=== PATIENT | male | born 1960 | race African-American/Black ===

== ENCOUNTER 2021-06-09 11:42 | Emergency (ER) | payer MEDICARE, OTHER ==
[2021-06-09] MEDS ORDERED: Acetaminophen 500 MG TAB ONE (12:25)
[2021-06-09] MEDS ORDERED: Ketorolac Tromethamine 30 MG/ML VIAL ONE (12:25)
== END 2021-06-09 13:05 | disposition home or self-care (01) ==
LOC: ERS 11:42
DX: M25.562 Pain in left knee (principal); I10 Essential (primary) hypertension
CPT/HCPCS: 96372; J1885

== ENCOUNTER 2021-08-10 10:37 | Outpatient (CLI) | payer OTHER | END 2021-08-10 10:38 | disposition home or self-care (01) | LOC: BICMRI 10:37 | PROVIDERS: ATTEND Family Medicine | DX: M51.16 Intervertebral disc disorders with radiculopathy, lumbar region (principal); M48.07 Spinal stenosis, lumbosacral region; M47.26 Other spondylosis with radiculopathy, lumbar region; M47.817 Spondylosis without myelopathy or radiculopathy, lumbosacral region | CPT/HCPCS: 72148 ==

== ENCOUNTER 2022-01-14 14:06 | Outpatient (CLI) | payer OTHER | END 2022-01-14 14:07 | disposition home or self-care (01) | LOC: RAD-FRANK 14:06 | PROVIDERS: ATTEND Nurse Practitioner Family | DX: M25.462 Effusion, left knee (principal); M79.89 Other specified soft tissue disorders; S62.231A Other displaced fracture of base of first metacarpal bone, right hand, initial encounter for closed fracture ==

== ENCOUNTER 2022-02-15 10:44 | Emergency (ER) | payer OTHER ==
[2022-02-15] MEDS ORDERED: Ketorolac Tromethamine 30 MG/ML VIAL ONE (11:57)
== END 2022-02-15 12:01 | disposition home or self-care (01) ==
LOC: ERS 10:44
DX: M25.562 Pain in left knee (principal); W19.XXXA Unspecified fall, initial encounter
CPT/HCPCS: 96372; J1885

== ENCOUNTER 2024-02-20 10:28 | Outpatient (CLI) | payer MEDICARE ==
[2024-02-20 11:37] LABS: #Basophils 0.04 10x3/uL (0.0-0.2); %Basophils 0.7 % (0.0-1.0); %Lymphocytes 41.7 % (21.0-51.0); %Monocytes 10.4 % (0.0-10.0); Hematocrit 43.8 % (42.0-52.0); Hemoglobin 14.3 g/dL (14.0-18.0); Mean Corpuscular HGB CONC 32.6 g/dL (32.0-36.0); Mean Corpuscular Hemoglobin 28.2 pg (27.0-31.0); Mean Corpuscular Volume 86.4 fL (78.0-98.0); Mean Platelet Volume 8.8 fL (7.4-10.4); Platelet Count 156 10x3/uL (130-400); RBC Distribution Width 14.5 % (11.5-14.5); Red Blood Cell (RBC) Count 5.07 mill/uL (4.70-6.10)
[2024-02-20 11:53] LABS: ALT (SGPT) 39 U/L (8-55); AST (SGOT) 25 U/L (5-34); Albumin 4.1 g/dL (3.4-4.8); Alkaline Phosphatase 109 U/L (40-110); Anion Gap 12 mmol/L (10-20); BUN (Urea Nitrogen) 24 mg/dL (8.4-25.7); Bilirubin, Direct 0.2 mg/dL (0.1-0.3); Bilirubin, Total 0.5 mg/dL (0.2-1.2); Calc. Creatinine Clearance 0 mL/min (70-130); Calcium 9.6 mg/dL (7.8-10.44); Carbon Dioxide 23 mmol/L (23-31); Chloride 108 mmol/L (98-107); Estimated GFR 69; Glucose 114 mg/dL (80-115); Potassium 4.2 mmol/L (3.5-5.1); Protein, Total 7.1 g/dL (5.8-8.1); Sodium 139 mmol/L (136-145)
== END 2024-02-20 10:29 | disposition home or self-care (01) ==
LOC: LABBT 10:28
PROVIDERS: ATTEND Internal Medicine Cardiovascular Disease
DX: Z01.812 Encounter for preprocedural laboratory examination (principal); I42.9 Cardiomyopathy, unspecified
CPT/HCPCS: 80053; 80076; 85025